=== PATIENT | male | born 1995 | race Caucasian/White ===

== ENCOUNTER 2016-05-05 02:57 | Emergency (ER) | payer OTHER ==
[2016-05-05 03:05] VITALS: BP 146/105; PULSE 115; TEMP 98.5; BMI 21.7
--- NOTE | 2016-05-05 03:35 | PDOC ---
History of Present Illness - General Chief Complaint: Laceration Stated Complaint: LH 1ST FINGER LAC Time Seen by Provider: 05/05/16 03:08 History Source: Patient Exam Limitations: No Limitations - History of Present Illness Initial Comments: 05/05/16 03:32 This is a 20-year-old male who comes in complaining of a right thumb laceration. Patient was drinking this evening and slipped on the ice fell lacerating his finger. Patient did not hit his head did not pass out denies any other injuries. Patient's tetanus is up-to-date PAST MEDICAL HISTORY: no significant history PAST SURGICAL HISTORY: no significant history FAMILY HISTORY: no pertinant history SOCIAL HISTORY: Pt lives with family and is employed. MEDICATIONS: reviewed ALLERGIES: As per nursing notes Review of Systems General: No fevers or chills, no weakness, no weight loss HEENT: No change in vision. No sore throat,. No ear pain CardioVascular: No chest pain or shortness of breath Respiratory:No cough, or wheezing. Gastrointestinal: no nausea, vomitting, diarrhea or constipation, No rectal bleeding Genitourinary: No dysuria, hematuria, or frequency Musculoskeletal: Laceration right thumb as per history of present illness Neurologic: No headache, vertigo, dizziness or loss of consciousness Psychiatric: nor depression Skin: No rashes or easy bruising Endocrine: no increased thirst or abnormal weight change Allergic: no skin or latex allergy All other systems reviewed and normal GENERAL: The patient is awake, alert, and fully oriented, in no acute distress. HEAD: Normal with no signs of trauma. EYES: Pupils equal, round and reactive to light, extraocular movements intact, sclera anicteric, conjunctiva clear. EXTREMITIES: There is a superficial approximately half centimeter laceration medial aspect of the midportion of the thumb neurovascular distal is intact NEUROLOGICAL: Normal speech, normal gait. PSYCH: Normal mood, normal affect. SKIN: Warm, Dry, normal turgor, no rashes or lesions noted. Procedure note laceration repair Laceration was anesthetized with 1% lidocaine no epinephrine Laceration was cleaned with peroxide and closed with a total of 3 sutures of 5- 0 Ethilon Sterile dressing and bacitracin was applied patient tolerated well Past History - Past Medical History Allergies/Adverse Reactions: Allergies Allergy/AdvReac Type Severity Reaction Status Date / Time Penicillins Allergy Verified 08/18/12 19:07 Home Medications: Ambulatory Orders No Home Medications 08/18/12 Asthma: No Diabetes: No HTN: No Other medical history: DENIES - Immunization History Td Vaccination: Yes Immunization Up to Date: Yes - Psycho/Social/Smoking Cessation Hx Anxiety: No Suicidal Ideation: No Smoking Status: No Smoking History: Current every day smoker Have you smoked in the past 12 months: Yes Number of Cigarettes Smoked Daily: 2 Information on smoking cessation initiated: Yes 'Breaking Loose' booklet given: 05/05/16 Hx Alcohol Use: No Drug/Substance Use Hx: No Substance Use Type: Alcohol *Physical Exam - Vital Signs Last Vital Signs Temp Pulse Resp BP Pulse Ox 98.5 F 115 H 16 146/105 100 05/05/16 03:03 05/05/16 03:03 05/05/16 03:03 05/05/16 03:03 05/05/16 03:03 *DC/Admit/Observation/Transfer Diagnosis at time of Disposition: Laceration of right thumb Qualifiers: Encounter type: initial encounter Qualified Code(s): S61.011A - Laceration without foreign body of right thumb without damage to nail, initial encounter - Discharge Dispostion Disposition: HOME Condition at time of disposition: Stable Admit: No - Patient Instructions Printed Discharge Instructions: DI for Laceration Repair Additional Instructions: Suture removal in one week U can return here for suture removal or see her primary care doctor. Return to the emergency department immediately with ANY new, persistent or worsening symptoms. Continue any medications as previously prescribed by your physician. You should follow up with your primary doctor as soon as possible regarding today's emergency department visit. . Please make sure your doctor reviews the results of your emergency evaluation. Thank you for coming to the Emergency Department today for your care. It was a pleasure to see you today. Please note that your evaluation is INCOMPLETE until you follow-up with your doctor.
== END 2016-05-05 03:38 | disposition home or self-care (01) ==
LOC: FER 02:57
PROC: 0HQGXZZ Repair Left Hand Skin, External Approach (ICD-10-PCS; principal; 2016-05-05)
DX: S61.011A Laceration without foreign body of right thumb without damage to nail, initial encounter (principal); W00.0XXA Fall on same level due to ice and snow, initial encounter; Y93.89 Activity, other specified; Y92.410 Unspecified street and highway as the place of occurrence of the external cause; F17.210 Nicotine dependence, cigarettes, uncomplicated
CPT/HCPCS: 99282-25